=== PATIENT | female | born 1950 | race American Indian/Alaskan Native ===

== ENCOUNTER 2018-11-11 09:42 | Outpatient (CLI) | payer MEDICARE, BC ==
--- NOTE | 2018-11-11 14:05 | CARDIAC PROCEDURE NOTE ---
DATE OF SERVICE: 11/11/2018 Physician: Esperanza Fish MD, [facility] INDICATION: Chest pain. CARDIAC RISK FACTORS: Postmenopausal status, family history of heart disease, possible hypertension untreated. PROCEDURE: After signing informed consent, the patient underwent a John Paul- protocol treadmill stress test. No imaging was ordered with this test. RESTING HEART RATE: 53. PEAK HEART RATE: 146 (97% predicted maximum heart rate for age). RESTING BLOOD PRESSURE: 150/80. PEAK BLOOD PRESSURE: 186/60. Patient exercised for 8 minutes and 51 seconds on a John Paul-protocol treadmill stress test. She achieved a peak heart rate of 146 (97% PMHR) 10.2 METS. Patient developed mild shortness of breath and reported her perceived exertion to be 16/20, on a Latonya scale. The patient had no chest pain during the entire test. The test was stopped due to fatigue. RESTING EKG: Normal sinus rhythm, left atrial and right atrial enlargement, LVH voltage. EKG AT PEAK: New upsloping ST segments infero-laterally (not specific for ischemia), and occasional PACs, but frequent ventricular ectopy with several runs of ventricular bigeminy, the longest approximately 20 seconds. These were all asymptomatic. The ventricular ectopy stopped at 2 minutes post-exercise. SUMMARY 1. ABNORMAL resting EKG. 2. Good exercise tolerance. 3. Ventricular ectopy occurs with exercise, but no ischemic ST or T wave changes are seen, at a good level of stress. 4. No imaging was ordered with this test. 5. Her cardiac risk level is MODERATE, based on ventricular ectopy at peak exercise. Consider repeat stress testing with nuclear myocardial perfusion imaging. cc: HEATH Salas TD: 11/11/2018 13:46 MTDD
== END 2018-11-11 09:43 | disposition home or self-care (01) ==
LOC: DI 09:42
PROVIDERS: ATTEND Nurse Practitioner Family
DX: R07.9 Chest pain, unspecified (principal); R94.31 Abnormal electrocardiogram [ECG] [EKG]; Z78.0 Asymptomatic menopausal state; Z82.49 Family history of ischemic heart disease and other diseases of the circulatory system
CPT/HCPCS: 93016; 93017; 93018

== ENCOUNTER 2018-12-09 09:38 | Outpatient (CLI) | payer MEDICARE, BC ==
--- NOTE | 2018-12-09 14:58 | CARDIAC PROCEDURE NOTE ---
DATE OF SERVICE: 12/09/2018 Physician: Esperanza Fish MD, [facility] INDICATION: Abnormal cardiac test result. CARDIAC RISK FACTORS: Postmenopausal status, family history of heart disease, possible hypertension, untreated. PROCEDURE: After signing informed consent, the patient underwent a John Paul- protocol treadmill stress test with nuclear myocardial perfusion imaging. RESTING HEART RATE: 78. PEAK HEART RATE: 145 (96% predicted maximum heart rate for age). RESTING BLOOD PRESSURE: 150/80. PEAK BLOOD PRESSURE: 178/75. Patient exercised for 8 minutes and 48 seconds on a John Paul-protocol treadmill stress test. She achieved a peak heart rate of 145 (96% PMHR) and 10.2 METS. The patient had mild shortness of breath, no chest pain, and oxygen saturation was 99% at peak on room air. She reported perceived difficulty Latonya scale at 13 at peak. The exercise was stopped because of new ventricular ectopy. EKG AT REST: Normal sinus rhythm, left atrial enlargement, LVH voltage. EKG AT PEAK: More pronounced left atrial enlargement, upsloping ST segment depressions in leads II, III, aVF, and V5-V6. There is also new ventricular bigeminy: a 14 beat run and a 6 beat run at peak and immediate recovery. This resolved after 1 minute of recovery, and she was asymptomatic with these. SUMMARY 1. Abnormal resting EKG. 2. Good exercise tolerance. 3. Ventricular ectopy occurs with exercise. 4. Nonspecific ST segment changes at peak at a good level of stress. 5. Nuclear cardiac imaging was reported separately. cc: HEATH Salas TD: 12/09/2018 14:50 MTDD
--- NOTE | 2018-12-09 17:54 | Nuclear Medicine Report ---
Reason: ABN RESULTS FOR CARDIOVASCULAR EXAM Procedure Date: 12/09/2018 Accession Number: [id number] / [id number] Procedure: NM - Myocardial Perfusion STR/RST CPT Code: FULL RESULT: EXAM: SINGLE-ISOTOPE EXERCISE STRESS TEST. SINGLE-ISOTOPE AND ONE-DAY REST/STRESS MYOCARDIAL PERFUSION SCANS WITH TOMOGRAPHIC IMAGING, QUANTITATIVE ANALYSIS, WALL MOTION ANALYSIS AND CALCULATION OF EJECTION FRACTION. EXAM DATE: 12/09/2018 12:53 PM. CLINICAL HISTORY: ABN RESULTS FOR CARDIOVASCULAR EXAM. COMPARISON: MYOCARDIAL PERFUSION 12/09/2018 10:36 AM. TECHNIQUE: A rest myocardial perfusion scan was done with tomography after the intravenous administration of 10.6 mCi Tc-99m sestamibi. After an appropriate delay, a treadmill exercise stress was performed according to department protocol. The patient exercised for 8 minutes and 48 seconds. The maximum heart rate was 145 bpm, which was 96% of the maximum predicted heart rate of 150 bpm. At approximately peak heart rate, 43.3 mCi of Tc-99m sestamibi was injected for stress myocardial perfusion scan. Motion correction was applied when appropriate. Gated tomographic images were obtained for wall motion analysis and computation of left ventricular ejection fraction. FINDINGS: Perfusion images: Left ventricular chamber size appears normal at rest and unchanged at stress. No convincing fixed perfusion deficits. No convincing reversible perfusion deficits. SSS 4, SRS 4, SDS 0. Gated images: No convincing focal wall motion abnormality. Calculated left ventricular EDV 63 mL, ESV 12 mL. The left ventricular ejection fraction is estimated at 81% (normal > 50%). IMPRESSION: 1. No convincing reversible perfusion deficits to indicate stress-induced ischemia. 2. No convincing fixed perfusion deficits. 3. Left ventricular ejection fraction of 81% (normal > 50%). Please correlate findings with stress ECG tracings and procedure notes. RADIA
== END 2018-12-09 09:39 | disposition home or self-care (01) ==
LOC: DI 09:38
PROVIDERS: ATTEND Nurse Practitioner Family
DX: R94.39 Abnormal result of other cardiovascular function study (principal)
CPT/HCPCS: 78452; 93016; 93017; 93018; A9500

== ENCOUNTER 2020-03-08 13:49 | Outpatient (CLI) | payer MEDICARE, BC ==
--- NOTE | 2020-03-08 16:42 | DEXA Report ---
PROCEDURE: Dexa Spine and/or Hip INDICATIONS: OTH SPEC DISORDER OF BONE DENSITY TECHNIQUE: Dual energy x-ray absorptiometry (DXA) was performed on a zLense System. Regions measur ed are the AP Spine, femoral neck, and if needed forearm. COMPARISON: None. FINDINGS: Lumbar Spine: Bone Mineral Density 0.863 g/cm/cm,T score -2.6, mild osteoporosis Left Hip: Bone Mineral Density 0.828 g/cm/cm,T score -1.4, mild osteopenia Left Femoral Neck: Bone Mineral Density 0.807 g/cm/cm, T score -1.7, mild to moderate osteopenia (T score greater or equal to -1.0: NORMAL) (T score from -1.1 to -2.4: OSTEOPENIA) (T score less than or equal to -2.5 to: OSTEOPOROSIS) Impression: Mild to moderate osteopenia in the left femoral neck. Patients with diagnosis of osteoporosis or osteopenia should have regular bone mineral density assess ment. For those eligible for Medicare, routine testing is allowed once every 2 years. Testing frequ ency can be increased for patients who have rapidly progressing disease or for those who are receivin g medical therapy to restore bone mass. Reviewed by: Jeanette Dwyer MD on 03/08/2020 4:41 PM PDT Approved by: Jeanette Dwyer MD on 03/08/2020 4:41 PM PDT Station ID: [id number]
== END 2020-03-08 13:50 | disposition home or self-care (01) ==
LOC: DI 13:49
PROVIDERS: ATTEND Registered Nurse
DX: M85.88 Other specified disorders of bone density and structure, other site (principal); M81.0 Age-related osteoporosis without current pathological fracture
CPT/HCPCS: 77080

== ENCOUNTER 2020-03-08 13:50 | Outpatient (CLI) | payer MEDICARE, BC ==
--- NOTE | 2020-03-09 14:12 | Mammography Report ---
BILATERAL DIGITAL SCREENING MAMMOGRAM 3D/2D: 03/08/2020 CLINICAL: Baseline exam. Routine screening. No prior exams were available for comparison. The tissue of both breasts is predominantly fatty. No significant masses, calcifications, or other findings are seen in either breast. IMPRESSION: NEGATIVE There is no mammographic evidence of malignancy. A 1 year screening mammogram is recommended. This exam was interpreted at Station ID: [id number]. NOTE: For mammograms, a report in lay terms will be sent to the patient. Approximately 15% of breast malignancies will not be visualized mammographically. In the management of a palpable breast mass, a negative mammogram must not discourage biopsy of a clinically suspicious lesion. Electronically Signed By: Avtar Romo M.D., jr/ramírez:03/08/2020 14:52:42 ACR BI-RADS Category 1: Negative 3341F PARENCHYMAL PATTERN: (F) - The breast(s) demonstrate(s) diffuse fatty replacement. BI-RADS CATEGORY: (1) - 1 RECOMMENDATION: (ANNUAL) - Recommend routine annual screening mammography. [id number] 1 year screening LATERALITY: (B)
== END 2020-03-08 13:51 | disposition home or self-care (01) ==
LOC: DI 13:50
PROVIDERS: ATTEND Registered Nurse
DX: Z12.31 Encounter for screening mammogram for malignant neoplasm of breast (principal)
CPT/HCPCS: 77063; 77067

== ENCOUNTER 2020-04-20 09:17 | Day surgery (SDC) | payer MEDICARE, BC ==
[2020-04-20] MEDS ORDERED: LACTATED RINGERS 1,000 ML IV ONE ×2 (09:41→11:31)
[2020-04-20] MEDS ORDERED: MIDAZOLAM 2 MG/2 ML VIAL IVP ONE (10:28)
[2020-04-20] MEDS ORDERED: fentaNYL 250 MCG/5 ML VIAL IVP ONE (10:28)
[2020-04-20] MEDS ORDERED: LIDO GARGLE 30 ML BOTTLE PO ONE (10:41)
[2020-04-20] MEDS ORDERED: BENZOCAINE/TETRACAINE/BUTAMBEN 20 GM TOP ONE (10:42)
[2020-04-20] MEDS ORDERED: LIDO GARGLE 30 ML BOTTLE ONE (10:44)
[2020-04-20] MEDS ORDERED: GLYCOPYRROLATE 1 MG/5 ML VIAL IVP ONE (11:16)
[2020-04-20 12:23] VITALS: BP 109/50
--- NOTE | 2020-04-20 13:34 | ANESTHESIA POST OP EVALUATION ---
Anesthesia Post Eval - Post Anesthesia Eval Vitals: Last Vital Signs Temp 36.2 C L 04/20/20 11:58 Pulse 56 L 04/20/20 12:22 Resp 16 04/20/20 12:22 BP 109/50 L 04/20/20 12:22 Pulse Ox 100 04/20/20 12:22 CV Function Including HR & BP: positive: Stable Pain Control: positive: Satisfactory Nausea & Vomiting: positive: Negative Mental Status: positive: Baseline Respiratory Status: Airway Patent Hydration Status: Satisfactory Anesthesia Complications: positive: None
== END 2020-04-20 09:18 | disposition home or self-care (01) ==
LOC: SDS 09:17
PROVIDERS: ATTEND Surgery
PROC: 0DB68ZX Excision of Stomach, Via Natural or Artificial Opening Endoscopic, Diagnostic (ICD-10-PCS; 2020-04-20)
PROC: 0DB38ZX Excision of Lower Esophagus, Via Natural or Artificial Opening Endoscopic, Diagnostic (ICD-10-PCS; 2020-04-20)
PROC: 0DJD8ZZ Inspection of Lower Intestinal Tract, Via Natural or Artificial Opening Endoscopic (ICD-10-PCS; principal; 2020-04-20 10:30)
PROC: 0DB48ZX Excision of Esophagogastric Junction, Via Natural or Artificial Opening Endoscopic, Diagnostic (ICD-10-PCS; 2020-04-20 10:30)
DX: Z12.11 Encounter for screening for malignant neoplasm of colon (principal); R07.89 Other chest pain; K64.8 Other hemorrhoids; Q43.8 Other specified congenital malformations of intestine; K29.50 Unspecified chronic gastritis without bleeding
CPT/HCPCS: 43239; A9270; G0121; J3010; J7120

== ENCOUNTER 2020-07-18 07:22 | Outpatient (CLI) | payer MEDICARE, BC ==
--- NOTE | 2020-07-18 16:06 | Ultrasound Report ---
PROCEDURE: Duplex Aorta Complete INDICATIONS: ABD BRUIT TECHNIQUE: Color and pulse Doppler interrogation was performed of the aorta and iliac arterial systems, with ino ge documentation. COMPARISON: None. FINDINGS: Aorta: 75 cm/sec, with triphasic flow. Right lower extremity: Proximal common iliac artery: 101cm/sec. Distal common iliac artery: 68 cm/sec. Proximal external iliac artery: Not identified. Distal external iliac artery: 70 cm/sec. Common femoral artery: 58 cm/sec. Garza-scale imaging description: Scattered atherosclerotic plaque. Left lower extremity: Proximal common iliac artery: 143 cm/sec. Distal common iliac artery: 61 cm/sec. Proximal external iliac artery: 188 cm/sec. Distal external iliac artery: 156 cm/sec. Common femoral artery: 54 cm/sec. Garza-scale imaging description: Scattered atherosclerotic plaque. IMPRESSION: 1. No evidence of abdominal aortic aneurysm or abdominal aortic stenosis.. 2. 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 3. Less than 50% stenosis of the proximal right and left common iliac arteries. Reviewed by: Diana Rendon MD, PhD on 07/18/2020 4:04 PM PST Approved by: Diana Rendon MD, PhD on 07/18/2020 4:04 PM PST Station ID: [id number]
== END 2020-07-18 07:23 | disposition home or self-care (01) ==
LOC: DI 07:22
PROVIDERS: ATTEND Registered Nurse
DX: R09.89 Other specified symptoms and signs involving the circulatory and respiratory systems (principal)
CPT/HCPCS: 93978

== ENCOUNTER 2023-01-23 08:11 | Outpatient (CLI) | payer MEDICARE, BC ==
--- NOTE | 2023-01-24 12:56 | Mammography Report ---
BILATERAL DIGITAL SCREENING MAMMOGRAM 3D/2D WITH EXAGGERATED CC: 01/23/2023 CLINICAL: Routine screening. Comparison is made to exam dated: 03/08/2020 mammogram - [facility]. Both breasts are heterogeneously dense, which may obscure small masses (category c / 51-75% glandular tissue). No significant masses, calcifications, or other findings are seen in either breast. There has been no significant interval change. IMPRESSION: NEGATIVE There is no mammographic evidence of malignancy. A 1 year screening mammogram is recommended. Based on the Tyrer Cuzick model (a risk assessment model) the patients lifetime risk is 5.3% and her 10 year risk is 4.8%. According to the ACR, ACS, and NCCN guidelines, an annual breast MRI exam kwasi g with mammogram is recommended if the patients lifetime risk is 20% or greater. This exam was interpreted at Station ID: [id number]. NOTE: For mammograms, a report in lay terms will be sent to the patient. Approximately 15% of breast malignancies will not be visualized mammographically. In the management of a palpable breast mass, a negative mammogram must not discourage biopsy of a clinically suspicious lesion. Electronically Signed By: Lex jewell/ramírez:01/23/2023 10:44:38 letter sent: No_Letter ACR BI-RADS Category 1: Negative 3341F PARENCHYMAL PATTERN: (D) - The breast(s) demonstrate(s) heterogeneously dense fibroglandular joseph florez. BI-RADS CATEGORY: (1) - 1 Mammogram [id number] 1 year screening LATERALITY: (B)
== END 2023-01-23 08:12 | disposition home or self-care (01) ==
LOC: DI.S 08:11
PROVIDERS: ATTEND Registered Nurse
DX: Z12.31 Encounter for screening mammogram for malignant neoplasm of breast (principal)

== ENCOUNTER 2023-11-08 08:00 | Outpatient (CLI) | payer MEDICARE, BC | END 2023-11-08 23:59 | disposition home or self-care (01) | LOC: LAB.WCP 08:00 | PROVIDERS: ATTEND Physician Assistant Medical | DX: J02.9 Acute pharyngitis, unspecified (principal) | CPT/HCPCS: 87070 ==

== ENCOUNTER 2023-12-24 19:38 | Emergency (ER) | payer MEDICARE, BC ==
--- NOTE | 2023-12-24 20:08 | ED Physician Documentation ---
PD HPI ABD PAIN - Stated complaint Stated Complaint: ABD PX/N - Chief complaint Chief Complaint: Abd Pain - History obtained from History obtained from: Patient, Family - Additional information Additional information: 73-year-old woman who is relatively healthy. History of section, no other abdominal surgeries. Also mild hypothyroidism. She developed abdominal pain in the left lower quadrant starting this afternoon around 1 PM. Prior to that she was just fine even going for a run. Pain became progressively worse and is now severe with about an hour of vomiting. No urinary complaints. Had a normal BM today. 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 - Present Medications Home Medications: Ambulatory Orders Medication Instructions Recorded Confirmed Levothyroxine [Synthroid] 88 mcg PO QDAC 04/19/20 12/24/23 Amox/Clav 875/125 [Augmentin] 1 each PO Q12H #14 tablet 12/24/23 Ondansetron Odt [Zofran] 4 mg TL Q6H PRN #10 tablet 12/24/23 Oxycodone HCl/Acetaminophen 1 - 2 each PO Q6H PRN #14 tablet 12/24/23 [Percocet 5-325 mg Tablet] - Allergies Allergies/Adverse Reactions: Allergies Allergy/AdvReac Type Severity Reaction Status Date / Time No Known Drug Allergies Allergy Verified 12/24/23 19:54 - Social History Does the pt smoke?: No Smoking Status: Never smoker Does the pt drink ETOH?: No Does the pt have substance abuse?: No - Immunizations Immunizations are current?: Yes - POLST Patient has POLST: No PD ED PE NORMAL - Vitals Vital signs reviewed: Yes - General General: Alert and oriented X 3, Other (Uncomfortable and hypertensive) - Cardiac Cardiac: RRR, No murmur - Respiratory Respiratory: No respiratory distress, Clear bilaterally - Abdomen Abdomen: Normal bowel sounds, Soft, Other (Tender in the left lower quadrant without surgical signs. No CVA tenderness on either side.) - Back Back: No CVA TTP - Derm Derm: Normal color, Warm and dry - Extremities Extremities: No edema, No calf tenderness / cord - Neuro Neuro: Alert and oriented X 3, Normal speech Results - Vitals Vitals: Vital Signs - 24 hr 12/24/23 12/24/23 12/24/23 19:51 19:53 20:45 Temperature 36.3 C L Heart Rate 67 60 59 L Respiratory 18 20 18 Rate Blood Pressure 181/147 H 184/100 H 184/99 H O2 Saturation 98 98 96 12/24/23 12/25/23 23:20 00:08 Temperature Heart Rate 56 L 55 L Respiratory 12 16 Rate Blood Pressure 174/95 H 181/90 H O2 Saturation 100 100 Oxygen O2 Source Room air - Labs Labs: Laboratory Tests 12/24/23 12/24/23 12/24/23 20:10 20:13 20:13 WBC 6.5 RBC 4.42 Hgb 13.2 Hct 40.9 MCV 92.5 MCH 29.9 MCHC 32.3 RDW 12.8 Plt Count 196 MPV 11.1 H Neut # (Auto) 4.0 Lymph # (Auto) 1.9 Monona # (Auto) 0.4 Eos # (Auto) 0.2 Baso # (Auto) 0.0 Absolute Nucleated RBC 0.00 Nucleated RBC % 0.0 Sodium 138 Potassium 4.2 Chloride 104 Carbon Dioxide 28 Anion Gap 6.0 BUN 20 Creatinine 0.9 Estimated GFR (MDRD) 61 L Glucose 130 H Calcium 9.6 Total Bilirubin 0.7 AST 26 ALT 17 Alkaline Phosphatase 102 Total Protein 7.2 Albumin 4.5 Globulin 2.7 Albumin/Globulin Ratio 1.7 Urine Color YELLOW Urine Clarity CLEAR Urine pH 8.0 H Ur Specific [place] 1.020 Urine Protein NEGATIVE Urine Glucose (UA) NEGATIVE Urine Ketones NEGATIVE Urine Occult Blood TRACE-INTA Urine Nitrite NEGATIVE Urine Bilirubin NEGATIVE Urine Urobilinogen 0.2 (NORMAL) Ur Leukocyte Esterase NEGATIVE Ur Microscopic Review NOT INDICATED Urine Culture Comments NOT INDICATED - Rads (name of study) CT A/P-> colitis Relevant Findings:: Final report received, EMP independent interpretation of test PD Medical Decision Making - ED course Complexity details: reviewed results (CBC, CMP, urinalysis all normal/negative.) ED course: Relatively acute onset left lower quadrant pain. The acuity leads away from a diagnosis of diverticulitis although she says it is worse when she moves or lifts her leg or walks. Ovarian pathology unlikely at this age. Kidney stone would match the acuity of her pain but not that tenderness necessarily. Departure - Departure Disposition: 01 Home, Self Care Clinical Impression: Colitis Abdominal pain Qualifiers: Abdominal location: left lower quadrant Qualified Code(s): R10.32 - Left lower quadrant pain Condition: Good Record reviewed to determine appropriate education?: Yes Instructions: ED Abdominal Pain Female Non-Specific Abdominal Pain Prescriptions: Amox/Clav 875/125 [Augmentin] 1 each PO Q12H #14 tablet Oxycodone HCl/Acetaminophen [Percocet 5-325 mg Tablet] 1 - 2 each PO Q6H PRN #14 tablet PRN Reason: pain Ondansetron Odt [Zofran] 4 mg TL Q6H PRN #10 tablet PRN Reason: Nausea / Vomiting Comments: You were seen today for abdominal pain we identified colitis on the CT which is an inflammation of the colon. Given that you had a normal colonoscopy within the last few years this is likely an acute infectious issue. I am prescribing antibiotics, pain medications and nausea medication and sent the prescriptions electronically to the [facility] in [place]. Call your doctor to arrange a follow-up appointment, make the next available appointment. In the interim, return anytime if worse or if new symptoms develop. I am prescribing a short course of narcotic pain medication for you. These are potentially dangerous and addictive medications that should be used carefully. These medications may constipate you. Take an kysv-qdy-jtuzyjo stool softener (docusate) twice daily with plenty of water while taking these medications. If you go 24 hours without a bowel movement, take utsh-wey-jnmglho miralax, per package instructions. Do not drink or drive while taking these medications. If you received narcotic or sedating medications while in the emergency department, do not drive for 24 hours. Store this medication in a safe, secure place and out of reach of children. It is a violation of federal law to give or sell this medication to another person or to use in a manner other than prescribed. The ED will not refill narcotic prescriptions, including prescriptions lost or stolen. To dispose of unwanted medications: 1. [facility] provides a drop box for medication in pill form only (no liquids) 8:00 am to 4:30 p.m. Friday-Friday in the lobby of the [facility], [address], [place]. Empty pills into ziplock bag before disposal. Call [phone] for information. 2.[employer] is a free service available to all [facility] residents. Go to [email or web address] Note that many narcotic pain relievers also contain Tylenol/acetaminophen. Please ensure that your total dose of acetaminophen from all sources does not exceed 3 g (3000 mg) per day. Your blood pressure was elevated today on check into the emergency department. This does not mean that you have hypertension, it is a common phenomenon to come to the emergency department and have elevated blood pressure. I recommend that you see your primary care physician within the week to have it rechecked when you are feeling better. Forms: PCP List Discharge Date/Time: 12/25/23 00:20
[2023-12-24 20:18] LABS: BASOPHILS % (AUTO) 0.3 %; EOSINOPHILS # (AUTO) 0.2 10^3/uL (0.0-0.7); EOSINOPHILS % (AUTO) 2.3 %; HCT - HEMATOCRIT 40.9 % (37.0-47.0); HGB - HEMOGLOBIN 13.2 g/dL (12.0-16.0); LYMPHOCYTES # (AUTO) 1.9 10^3/uL (1.5-3.5); LYMPHOCYTES % (AUTO) 29.4 %; MEAN CORPUSCULAR HEMOGLOBIN 29.9 pg (27.0-31.0); MEAN CORPUSCULAR HGB CONC 32.3 g/dL (32.0-36.0); MEAN CORPUSCULAR VOLUME 92.5 fL (81.0-99.0); MEAN PLATELET VOLUME 11.1 fL (7.9-10.8); MONOCYTES # (AUTO) 0.4 10^3/uL (0.0-1.0); NEUTROPHILS % (AUTO) 61.8 %; PLT - PLATELET COUNT 196 10^3/uL (130-450); RED BLOOD COUNT 4.42 10^6/uL (4.20-5.40); RED CELL DISTRIBUTION WIDTH 12.8 % (12.0-15.0); WHITE BLOOD COUNT 6.5 x10^3/uL (4.8-10.8)
[2023-12-24 20:25] LABS: BILIRUBIN,URINE NEGATIVE (NEGATIVE); GLUCOSE, URINE (UA) NEGATIVE (NEGATIVE); KETONES,URINE (UA) NEGATIVE (NEGATIVE); LEUKOCYTE ESTERASE, URINE NEGATIVE (NEGATIVE); NITRITE,URINE NEGATIVE (NEGATIVE); OCCULT BLOOD,URINE TRACE-INTA (NEGATIVE); PROTEIN,URINE NEGATIVE (NEGATIVE); UROBILINOGEN,URINE 0.2 (NORMAL) E.U./dL (NORMAL)
[2023-12-24 20:27] LABS: CLARITY,URINE CLEAR (CLEAR)
[2023-12-24] MEDS: ONDANSETRON 4 MG/2 ML VIAL IVP STA (20:34)
[2023-12-24] MEDS: KETOROLAC 15 MG/ML VIAL IVP STA (20:35)
[2023-12-24] MEDS: HYDROmorphone 1 MG/ML CARPUJECT IVP STA (20:35)
[2023-12-24 20:37] LABS: ALBUMIN 4.5 g/dL (3.2-5.5); ALBUMIN/GLOBULIN RATIO 1.7 (1.0-2.2); BILIRUBIN,TOTAL 0.7 mg/dL (0.2-1.0); CALCIUM 9.6 mg/dL (8.5-10.3); CREATININE 0.9 mg/dL (0.6-1.3); POTASSIUM 4.2 mmol/L (3.5-4.5); TOTAL PROTEIN 7.2 g/dL (6.4-8.9)
[2023-12-24] MEDS ORDERED: iohexoL-300 100 ML VIAL ONE (21:02)
[2023-12-24] MEDS: iohexoL-300 100 ML VIAL IVP ONE (22:55)
[2023-12-24 23:22] VITALS: O2SAT 100
--- NOTE | 2023-12-24 23:27 | CT Report ---
PROCEDURE: Abdomen/Pelvis W INDICATIONS: IV only LLQ pain CONTRAST: OMNI 300, 100mls TECHNIQUE: After the administration of intravenous contrast, a CT scan of the abdomen and pelvis was performed. Images were recorded and evaluated at appropriate window settings. Reformats: coronal and sagittal. F or radiation dose reduction, the following was used: automated exposure control, adjustment of mA and /or kV according to patient size. COMPARISON: None. FINDINGS: Image quality: Diagnostic. Lower chest: Moderate bibasilar atelectasis. Small hiatal hernia. Liver: No solid mass. Gallbladder: Gallbladder is mildly distended but otherwise unremarkable. No radiodense gallstone. No pericholecystic stranding. Biliary tree: No intrahepatic or extrahepatic dilation, accounting for age. Spleen: No splenomegaly. Pancreas: No pancreatic ductal dilation. Adrenals: No adrenal nodule. Kidneys and ureters: No hydronephrosis. No renal cystic lesion which requires follow up. No solid mas s. Ureters are normal in course and caliber. Stomach, bowel and peritoneum: No gastric or small bowel dilation. No abnormal small bowel wall thick ening. There is mild circumferential thickening of the descending colon and proximal sigmoid colon sl ightly more than expected for degree of decompression and suggestion of mild perinephric colonic stra nding. Appendix is not definitively seen but no secondary findings for acute appendicitis. No patholo gic free fluid. Lymph nodes: No central or retroperitoneal adenopathy. Vessels: No infrarenal aortic aneurysm. Patent portal vein. PELVIS Reproductive organs: Unremarkable. Bladder: No abnormal wall thickening, accounting for underdistention. Pelvic lymph nodes: No pelvic adenopathy by size criteria. Bones: No aggressive osseous abnormality. No acute compression fracture. Other: No significant ventral or inguinal hernia. IMPRESSION: Findings suggestive of mild descending and proximal sigmoid colitis either infectious or inflammatory etiology. Otherwise, no acute abnormalities identified in the abdomen or pelvis. Mild gallbladder wall distention likely related to fasting state. If there are localizing symptoms, f urther evaluation with right upper quadrant ultrasound can be considered. Other chronic findings as above Reviewed by: Yasmany Tineo MD on 12/24/2023 11:25 PM PDT Approved by: Yasmany Tineo MD on 12/24/2023 11:25 PM PDT Station ID: [id number]
[2023-12-24] MEDS: METOCLOPRAMIDE 10 MG/2 ML VIAL IVP STA (23:59)
[2023-12-24] MEDS: AMOX/CLAV 875 MG/125 MG TABLET PO STA (23:59)
[2023-12-25] MEDS: oxyCODONE/ACET 5/325 Prepack 4 PO STA
[2023-12-25] MEDS: ONDANSETRON ODT 4 MG Prepack 2 TL STA
[2023-12-25 00:21] VITALS: BP 181/90
== END 2023-12-25 00:20 | disposition home or self-care (01) ==
LOC: ED 19:38
DX: K52.9 Noninfective gastroenteritis and colitis, unspecified (principal); R10.32 Left lower quadrant pain; E03.9 Hypothyroidism, unspecified
CPT/HCPCS: 36415; 74177; 80053; 81003; 85025; 96374; 96375; 99283; 99284; A9270; J1170; J2765; Q9967; 81001; 87086

== ENCOUNTER 2023-12-29 10:54 | Outpatient (CLI) | payer MEDICARE, BC ==
[2023-12-29 15:11] LABS: BASOPHILS % (AUTO) 0.4 %; EOSINOPHILS # (AUTO) 0.1 10^3/uL (0.0-0.7); HCT - HEMATOCRIT 40.3 % (37.0-47.0); HGB - HEMOGLOBIN 13.1 g/dL (12.0-16.0); LYMPHOCYTES # (AUTO) 1.6 10^3/uL (1.5-3.5); LYMPHOCYTES % (AUTO) 27.8 %; MEAN CORPUSCULAR HEMOGLOBIN 30.3 pg (27.0-31.0); MEAN CORPUSCULAR HGB CONC 32.5 g/dL (32.0-36.0); MEAN CORPUSCULAR VOLUME 93.1 fL (81.0-99.0); MEAN PLATELET VOLUME 12.2 fL (7.9-10.8); MONOCYTES # (AUTO) 0.4 10^3/uL (0.0-1.0); MONOCYTES % (AUTO) 6.4 %; NEUTROPHILS # (AUTO) 3.6 10^3/uL (1.5-6.6); NEUTROPHILS % (AUTO) 63.2 %; PLT - PLATELET COUNT 197 10^3/uL (130-450); RED BLOOD COUNT 4.33 10^6/uL (4.20-5.40); RED CELL DISTRIBUTION WIDTH 12.6 % (12.0-15.0); WHITE BLOOD COUNT 5.6 x10^3/uL (4.8-10.8)
[2023-12-29 15:41] LABS: ALBUMIN 4.5 g/dL (3.2-5.5); ALBUMIN/GLOBULIN RATIO 1.7 (1.0-2.2); BILIRUBIN,TOTAL 0.8 mg/dL (0.2-1.0); CALCIUM 9.8 mg/dL (8.5-10.3); CREATININE 0.9 mg/dL (0.6-1.3); POTASSIUM 4.3 mmol/L (3.5-4.5); TOTAL PROTEIN 7.1 g/dL (6.4-8.9)
== END 2023-12-29 10:55 | disposition home or self-care (01) ==
LOC: LAB.S 10:54
PROVIDERS: ATTEND Emergency Medicine
DX: K57.92 Diverticulitis of intestine, part unspecified, without perforation or abscess without bleeding (principal)
CPT/HCPCS: 36415; 80053; 85025